=== PATIENT | female | born 1980 | race Caucasian/White ===

== ENCOUNTER 2016-09-09 06:26 | Emergency (ER) | payer OTHER ==
[2016-09-09] MEDS ORDERED: ONDANSETRON 4MG/2ML VIAL (J2405) As Ordered ONE (07:38)
[2016-09-09] MEDS ORDERED: MORPHINE 2 MG/ML 1ML SYRINGE As Ordered ONE (07:38)
[2016-09-09 08:00] LABS: ALBUMIN 3.8 GM/DL (3.2-5.2); ALBUMIN/GLOBULIN RATIO 1.19 (1.00-1.93); ALKALINE PHOSPHATASE 67 U/L (45-117); ALT/SGPT 24 U/L (12-78); AMYLASE 28 U/L (25-115); ANION GAP 9 MEQ/L (8-16); AST/SGOT 11 U/L (15-37); BILIRUBIN,DIRECT < 0.1 MG/DL (0.0-0.2); BILIRUBIN,TOTAL 0.4 MG/DL (0.2-1.0); BLOOD UREA NITROGEN 9 MG/DL (7-18); CALCIUM LEVEL 8.7 MG/DL (8.5-10.1); CARBON DIOXIDE LEVEL 27 MEQ/L (21-32); CHLORIDE LEVEL 107 MEQ/L (98-107); CREATININE FOR GFR 0.59 MG/DL (0.55-1.02); GLOMERULAR FILTRATION RATE > 60.0 (>60); GLUCOSE, FASTING 83 MG/DL (70-105); POTASSIUM SERUM 3.5 MEQ/L (3.5-5.1); SODIUM LEVEL 143 MEQ/L (136-145)
[2016-09-09] MEDS ORDERED: METOCLOPRAMIDE INJ 10MG/2ML VIAL (J2765) As Ordered ONE (08:16)
[2016-09-09 08:19] LABS: BASO % 0.4 % (0.0-1.0); EOS # 0.1 K/mm3 (0.0-0.50); EOS % 1.6 % (0.0-3.0); LARGE UNSTAINED CELL # 0.2 K/mm3 (0.0-0.4); LARGE UNSTAINED CELL % 2.1 % (0.0-4.0); LYMPH # 2.8 K/mm3 (1.5-4.5); LYMPH % 33.5 % (24.0-44.0); MEAN CORPUSCULAR HEMOGLOBIN 28.6 pg (27.0-33.0); MEAN CORPUSCULAR HGB CONC 33.6 g/dl (32.0-36.5); MONO # 0.5 K/mm3 (0.0-0.8); MONO % 6.1 % (0.0-5.0); NEUTROPHILS # 4.4 K/mm3 (1.8-7.7); NEUTROPHILS % 56.3 % (36.0-66.0); PLATELET COUNT, AUTOMATED 249 k/mm3 (150-450); RED CELL DISTRIBUTION WIDTH 12.8 % (11.5-14.5); WHITE BLOOD COUNT 7.8 K/mm3 (4.0-10.0)
[2016-09-09 08:21] LABS: CONTROL LINE HCG INT CTR LINE PRESENT
[2016-09-09] MEDS ORDERED: ISOVUE-370 76% 100ML VIAL (Q9967) As Ordered ONE (08:26)
--- NOTE | 2016-09-09 09:40 | REP ---
CT ABDOMEN PELVIS WITH IV BUT WITHOUT ORAL CONTRAST: HISTORY: Abdominal pain and epigastric pain. COMPARISON: CT study May [address] contrast dose: 100 mL of Isovue 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 The lung bases are essentially clear on axial CT images. No pleural effusion is seen. The liver and the spleen are normal in size and homogeneous in texture. The common bile duct is not dilated post cholecystectomy measuring 0.6 cm. 2 to 3 mm pancreatic duct is seen. No pancreatic cyst or mass is observed. No adrenal lesion is seen. The kidneys enhance symmetrically. Small and large intestinal bowel loops are normal in the upper abdomen. No retroperitoneal mass or adenopathy is seen. Normal caliber aorta is noted. The patient is status post appendectomy. Uterus is unremarkable. No ovarian mass, cyst or free fluid is seen. No abdominal wall defect is seen. IMPRESSION: Status post appendectomy and cholecystectomy. No acute intra-abdominal abnormality. No significant change from May 12, 2015 prior study. Signed by Bryan Escamilla MD 09/09/2016 10:07 A
--- NOTE | 2016-09-09 09:44 | EDDOCDS ---
Physician Documentation [facility] Name: Tammy Harmon Age: 36 yrs Sex: Female : 1980 Arrival Date: 09/09/2016 Time: 06:26 Bed I3 / M3 Private MD: Disposition: 09/09/16 09:28 Discharged to Home/Self Care. Impression: Nausea and vomiting, Diarrhea, unspecified. - Condition is Stable. - Discharge Instructions: Food Choices to Help Relieve Diarrhea, Adult, Nausea and Vomiting, Clear Liquid Diet, [id number]. - Prescriptions for ZOFRAN ODT 4 mg - dissolve 1 tablet by ORAL route 4 times per day As needed do not chew, do not swallow whole; 10 tablet. - Medication Reconciliation, Local Pharmacy Hours form. - Follow up: Center - [facility]; When: Call to arrange an appointment; Reason: Recheck today's complaints, Continuance of care. - Problem is new. - Symptoms have improved. - Notes: You were evaluated in the emergency department for nausea, vomiting, and diarrhea. Your work-up thus far has been negative. You were given pain and anti-nausea medication as well as some gentle fluid while in the ED. A prescription of Zofran has been provided at time of discharge to relieve your nausea. Follow the BRAT (bananas, rice, applesauce, toast) diet. Please schedule an appointment with your primary care provider at your soonest convenience to discuss today's complaints. Historical: - Allergies: No known drug Allergies; - Home Meds: 1. Prozac 20 mg Oral cap 1 cap once daily 2. Vitamin B-12 500 mcg Oral lozg - PMHx: Anxiety; - PSHx: Appendectomy; Cholecystectomy; Ovarian Cystectomy- Right; meniscus repair right knee; - Social history: Smoking status: Patient states former smoker of tobacco. No barriers to communication noted, The patient speaks fluent Albanian, Speaks appropriately for age. - Family history: Not pertinent. - : The pt / caregiver states he / she is not on anticoagulants. Home medication list is obtained from the patient. - Exposure Risk Screening:: None identified. 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 5 in. (165.10 cm); 07:37 BP 132 / 72 Supine; Pulse 50; pml 07:37 BP 116 / 76 Sitting; Pulse 53; pml 07:37 BP 130 / 78 Standing; Pulse 57; pml 09:28 BP 107 / 61; Pulse 51; Resp 18; Temp 97.2; Pulse Ox 99% ; Pain 5/10; jam1 06:33 Body Mass Index 26.63 (72.57 kg, 165.10 cm) cz MDM: 07:26 IV Saline Lock ordered. jo4 07:26 Ondansetron 4 mg IVP once ordered. jo4 07:26 morphine 2 mg IVP once ordered. jo4 07:26 Orthostatic VS ordered. jo4 07:26 Misc. Nursing Order ordered. jo4 07:27 CBC with Diff Ordered. EDMS 07:27 BMP Ordered. EDMS 07:27 Lipase Ordered. EDMS 07:27 Amylase Ordered. EDMS 07:27 Liver Profile Ordered. EDMS 07:30 Metoclopramide 10 mg IV at 40 mg/hr once over 15 mins ordered. jo4 07:41 Financial registration complete. mm15 07:42 [facility] Payment Agreement was scanned into [email or web address] and attached to record. mm15 08:11 Liver Profile Reviewed. jo4 08:12 BMP Reviewed. jo4 08:12 Lipase Reviewed. jo4 08:12 Amylase Reviewed. jo4 08:12 HCG,Serum Qualitative Ordered. EDMS 08:14 CT ABD & PELVIS: IV Contrast Only Ordered. EDMS 08:31 HCG,Serum Qualitative Reviewed. jo4 08:32 NS 0.9% 1000 ml IV at 100 mL/hr continuous ordered. jo4 08:42 CBC with Diff Reviewed. sd1 08:42 NS 0.9% 1000 ml IV at bolus once ordered. sd1 09:15 Fluid Challenge ordered. jo4 09:15 C Diff Toxins A&b Ordered. EDMS Administered Medications: 07:42 Drug: Ondansetron 4 mg [ondansetron HCl 2 mg/mL intravenous solution (2 mL)] Route: pml IVP; Site: right antecubital; 07:42 Drug: morphine 2 mg [morphine 2 mg/mL intravenous cartridge (1 mL)] Route: IVP; Site: pml right antecubital; 08:19 Drug: Metoclopramide 10 mg [metoclopramide 5 mg/mL injection solution] Route: IV; Rate: pml 40 mg/hr; Infused Over: 15 mins; Site: left antecubital; 08:40 Drug: NS 0.9% 1000 ml [sodium chloride 0.9 % injection solution] Route: IV; Rate: 100 pml mL/hr; Site: left antecubital; 08:50 Follow up: IV Status: Infusion discontinued pml 08:49 Drug: NS 0.9% 1000 ml [sodium chloride 0.9 % injection solution] Route: IV; Rate: pml bolus; Site: left antecubital; 09:41 Follow up: IV Status: Infusion discontinued; IV Intake: 500ml pml Signatures: Dispatcher [employer] Evelyn Alejandra MD MD sd1 Portillo Dan RN RN cz Michelle Dominguez RN RN pml Malcolm Lui mm15 Jacquelyn Bridges DO DO jo4 The chart was reviewed and I authenticate all verbal orders and agree with the evaluation and treatment provided.Attachments: 07:42 [facility] Payment Agreement mm15 MTDD
--- NOTE | 2016-09-09 09:44 | EDDOCDS ---
Nurse's Notes [facility] Name: Tammy Harmon Age: 36 yrs Sex: Female : 1980 Arrival Date: 09/09/2016 Time: 06:26 Bed I3 / M3 Private MD: Diagnosis: Nausea and vomiting;Diarrhea, unspecified Presentation: 09/09 06:30 Presenting complaint: Patient states: she started with nausea vomiting diarrhea 6 days cz ago unable to retain p.o. fluids for 4 days. Adult Sepsis Screening: The patient does not have new or worsening altered mentation. Patient's respiratory rate is less than 22. Systolic blood pressure is greater than 100. Patient has a qSOFA score of 0- Negative Sepsis Screen. Suicide/Homicide risk assessment- the patient denies having any suicidal and/or homicidal ideations and does not present with any other emotional, behavioral or mental health complaints. 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 Transition of care: patient was not received from another setting of care. 06:30 Acuity: [place] Level 3 cz 06:30 Method Of Arrival: Walkin/Carried/Asstd cz Triage Assessment: 06:33 General: Appears uncomfortable, Behavior is appropriate for age. Pain: Location: cz abdomen Pain currently is 7 out of 10 on a pain scale. HIV screening NA for this visit Offered previously. 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 Prozac 20 mg Oral cap 1 cap once daily 2. Vitamin B-12 500 mcg Oral lozg - PMHx: Anxiety; - PSHx: Appendectomy; Cholecystectomy; Ovarian Cystectomy- Right; meniscus repair right knee; - Social history: Smoking status: Patient states former smoker of tobacco. No barriers to communication noted, The patient speaks fluent Greek, Speaks appropriately for age. - Family history: Not pertinent. - : The pt / caregiver states he / she is not on anticoagulants. Home medication list is obtained from the patient. - Exposure Risk Screening:: None identified. Screenin:54 Screening information is obtained from the patient. Primary language is Greek. Fall jam1 risk: No risks identified. Assistance ADL's: requires no assistance with activities of daily living. Abuse/DV Screen: The patient / caregiver reports he/she is: not in a situation that causes fear, pain or injury. Nutritional screening: No deficits noted. Exposure Risk Screening: None identified. Advance Directives: Currently, there is no health care proxy. There is no active DNR order. There is no living will. There is no Power of Impregnating Helper. Advance directive information has not previously been placed in an [facility] medical record. Further advance directive information is declined. home support is adequate. Assessment: 07:02 General: Appears in no apparent distress, comfortable, Behavior is appropriate for age, pml cooperative. Pain: Location: abdomen Pain currently is 7 out of 10 on a pain scale. Neurological: Level of Consciousness is awake, alert, Oriented to person, place, time. Cardiovascular: Capillary refill < 3 seconds. Respiratory: Airway is patent Respiratory effort is even, unlabored. GI: Abdomen is non- distended Bowel sounds present X 4 quads. Abd is soft X 4 quads. Derm: Skin is pink, warm & dry. 08:19 General: resting on stretcher, reports abdominal cramping remains 6/10 - resps easy and pml unlabored, skin p/w/d. . 08:37 General: PT to CT - tolerated well. returned, rates pain unchanged. . pml 09:40 General: Appears in no apparent distress, comfortable, Behavior is appropriate for age, pml cooperative. Pain: Location: abdomen Pain currently is 5 out of 10 on a pain scale. Neurological: Level of Consciousness is awake, alert, Oriented to person, place, time. Cardiovascular: Capillary refill < 3 seconds. Respiratory: Airway is patent Respiratory effort is even, unlabored. GI: Abdomen is non- distended. Derm: Skin is pink, warm & dry. Vital Signs: 06:33 BP 124 / 76; Pulse 59; Resp 16; Temp 97.8(T); Pulse Ox 100% ; Weight 72.57 kg; Height 5 cz ft. 5 in. (165.10 cm); 07:37 BP 132 / 72 Supine; Pulse 50; pml 07:37 BP 116 / 76 Sitting; Pulse 53; pml 07:37 BP 130 / 78 Standing; Pulse 57; pml 09:28 BP 107 / 61; Pulse 51; Resp 18; Temp 97.2; Pulse Ox 99% ; Pain 5/10; jam1 06:33 Body Mass Index 26.63 (72.57 kg, 165.10 cm) cz Vitals: 06:33 Log In Time: September 09, 2016 at 06:27. cz ED Course: 06:27 Patient visited by Vibha Calvillo, [place]. hs2 06:27 Patient moved to Waiting hs2 06:30 Patient moved to Triage 1 cz 06:32 Triage Initiated cz 06:36 Patient moved to Pre RCE cz 06:48 Patient moved to I3 / M3 jam1 06:54 Pt greeted and oriented to ED. Patient advised of names of staff involved in care, jam1 location of call sen, wait times and NPO status. Patient has correct armband on for positive identification. Placed in gown. Bed in low position. Call light in reach. Side rails up X 1. Door closed. 07:00 [facility] jo4 07:00 Evelyn Acosta MD is Attending Physician. jo4 07:01 Patient visited by Jacquelyn Bridges DO. jo4 07:01 Patient visited by Jacquelyn Bridges DO. jo4 07:02 The patient / caregiver is instructed regarding the plan of care and ED course. pml 07:03 Patient visited by Michelle Dominguez RN. pml 07:42 [facility] Payment Agreement was scanned into [employer] and attached to record. mm15 07:45 Inserted peripheral IV: 20gauge IV in left antecubital area and blood collected. pml Patient tolerated the procedure well. 08:19 Patient visited by Michelle Dominguez RN. pml 08:29 Patient has correct armband on for positive identification. Bed in low position. Call jam1 light in reach. Side rails up X 1. Door closed. 08:[address] jam1 08:40 Patient visited by Michelle Dominguez,MIKI. pml 08:44 Patient moved to I3 / M3 je3 09:28 [facility] is Referral Physician. jo4 09:42 Discontinued lock intact, bleeding controlled, pressure dressing applied, No pml redness/swelling at site. No procedures done that require assistance. Administered Medications: 07:42 Drug: Ondansetron 4 mg [ondansetron HCl 2 mg/mL intravenous solution (2 mL)] Route: pml IVP; Site: right antecubital; 07:42 Drug: morphine 2 mg [morphine 2 mg/mL intravenous cartridge (1 mL)] Route: IVP; Site: pml right antecubital; 08:19 Drug: Metoclopramide 10 mg [metoclopramide 5 mg/mL injection solution] Route: IV; Rate: pml 40 mg/hr; Infused Over: 15 mins; Site: left antecubital; 08:40 Drug: NS 0.9% 1000 ml [sodium chloride 0.9 % injection solution] Route: IV; Rate: 100 pml mL/hr; Site: left antecubital; 08:50 Follow up: IV Status: Infusion discontinued pml 08:49 Drug: NS 0.9% 1000 ml [sodium chloride 0.9 % injection solution] Route: IV; Rate: pml bolus; Site: left antecubital; 09:41 Follow up: IV Status: Infusion discontinued; IV Intake: 500ml pml Intake: 09:41 IV: 500.00ml; Total: 500.00ml. pml Order Results: Lab Order: CBC with Diff; SPEC'M 09/09/16 07:34 Test: WHITE BLOOD COUNT; Value: 7.8; Range: 4.0-10.0; Units: K/mm3; Status: F Test: RED BLOOD COUNT; Value: 4.06; Range: 4.00-5.40; Units: M/mm3; Status: F Test: HEMOGLOBIN; Value: 11.6; Range: 12.0-16.0; Abnormal: Below low normal; Units: g/dl; Status: F Test: HEMATOCRIT; Value: 34.5; Range: 36.0-47.0; Abnormal: Below low normal; Units: %; Status: F Test: MEAN CORPUSCULAR VOLUME; Value: 85.0; Range: 80.0-96.0; Units: fl; Status: F Test: MEAN CORPUSCULAR HEMOGLOBIN; Value: 28.6; Range: 27.0-33.0; Units: pg; Status: F Test: MEAN CORPUSCULAR HGB CONC; Value: 33.6; Range: 32.0-36.5; Units: g/dl; Status: F Test: RED CELL DISTRIBUTION WIDTH; Value: 12.8; Range: 11.5-14.5; Units: %; Status: F Test: PLATELET COUNT, AUTOMATED; Value: 249; Range: 150-450; Units: k/mm3; Status: F Test: NEUTROPHILS %; Value: 56.3; Range: 36.0-66.0; Units: %; Status: F Test: LYMPH %; Value: 33.5; Range: 24.0-44.0; Units: %; Status: F Test: MONO %; Value: 6.1; Range: 0.0-5.0; Abnormal: Above high normal; Units: %; Status: F Test: EOS %; Value: 1.6; Range: 0.0-3.0; Units: %; Status: F Test: BASO %; Value: 0.4; Range: 0.0-1.0; Units: %; Status: F Test: LARGE UNSTAINED CELL %; Value: 2.1; Range: 0.0-4.0; Units: %; Status: F Test: NEUTROPHILS #; Value: 4.4; Range: 1.8-7.7; Units: K/mm3; Status: F Test: LYMPH #; Value: 2.8; Range: 1.5-4.5; Units: K/mm3; Status: F Test: MONO #; Value: 0.5; Range: 0.0-0.8; Units: K/mm3; Status: F Test: EOS #; Value: 0.1; Range: 0.0-0.50; Units: K/mm3; Status: F Test: BASO #; Value: 0.0; Range: 0.0-0.2; Units: K/mm3; Status: F Test: LARGE UNSTAINED CELL #; Value: 0.2; Range: 0.0-0.4; Units: K/mm3; Status: F Lab Order: [facility]; SPEC'M 09/09/16 07:34 Test: GLUCOSE, FASTING; Value: 83; Range: 70-105; Units: MG/DL; Status: F Test: BLOOD UREA NITROGEN; Value: 9; Range: 7-18; Units: MG/DL; Status: F Test: CREATININE FOR GFR; Value: 0.59; Range: 0.55-1.02; Units: MG/DL; Status: F Test: GLOMERULAR FILTRATION RATE; Value: > 60.0; Range: >60; Status: F Test: SODIUM LEVEL; Value: 143; Range: 136-145; Units: MEQ/L; Status: F Test: POTASSIUM SERUM; Value: 3.5; Range: 3.5-5.1; Units: MEQ/L; Status: F Test: CHLORIDE LEVEL; Value: 107; Range: 98-107; Units: MEQ/L; Status: F Test: CARBON DIOXIDE LEVEL; Value: 27; Range: 21-32; Units: MEQ/L; Status: F Test: ANION GAP; Value: 9; Range: 8-16; Units: MEQ/L; Status: F Test: CALCIUM LEVEL; Value: 8.7; Range: 8.5-10.1; Units: MG/DL; Status: F Test Note: ; Units are mL/min/1.73 m2 Chronic Kidney Disease Staging per NKF: Stage I & II GFR >=60 Normal to Mildly Decreased Stage III GFR 30-59 Moderately Decreased Stage IV GFR 15-29 Severely Decreased Stage V GFR <15 Very Little GFR Left ESRD GFR <15 on BOG CUTTER Lab Order: Lipase; [facility]' 09/09/16 07:34 Test: LIPASE; Value: 108; Range: 73-393; Units: U/L; Status: F Lab Order: Amylase; [facility] 09/09/16 07:34 Test: AMYLASE; Value: 28; Range: 25-115; Units: U/L; Status: F Lab Order: Liver Profile; [facility] 09/09/16 07:34 Test: AST/SGOT; Value: 11; Range: 15-37; Abnormal: Below low normal; Units: U/L; Status: F Test: ALT/SGPT; Value: 24; Range: 12-78; Units: U/L; Status: F Test: ALKALINE PHOSPHATASE; Value: 67; Range: 45-117; Units: U/L; Status: F Test: BILIRUBIN,TOTAL; Value: 0.4; Range: 0.2-1.0; Units: MG/DL; Status: F Test: BILIRUBIN,DIRECT; Value: < 0.1; Range: 0.0-0.2; Units: MG/DL; Status: F Test: TOTAL PROTEIN; Value: 7.0; Range: 6.4-8.2; Units: GM/DL; Status: F Test: ALBUMIN; Value: 3.8; Range: 3.2-5.2; Units: GM/DL; Status: F Test: ALBUMIN/GLOBULIN RATIO; Value: 1.19; Range: 1.00-1.93; Status: F Lab Order: HCG,Serum Qualitative; SPEC'M 09/09/16 07:34 Test: HCG, SERUM QUALITATIVE; Value: NEGATIVE; Range: NEGATIVE; Status: F Outcome: 09:28 Discharge ordered by Provider. jo4 09:42 Discharge Assessment: Patient awake, alert and oriented x 3. No cognitive and/or pml functional deficits noted. Patient verbalized understanding of disposition instructions. patient administered narcotics - yes. Pt provided with safe discharge. The following High Risk Discharge criteria are identified: None. Discharged to home ambulatory, with friend. Condition: good. Discharge instructions given to patient, Instructed on discharge instructions, follow up and referral plans. medication usage, Demonstrated understanding of instructions, medications, Pt was receptive of discharge instructions/ teaching. Prescriptions given X 1. CT Study completed. Property sent home with patient. 09:43 Patient left the ED. pml Signatures: Portillo Dan RN RN cz Murphy, Jane, PALLETIZER OPERATOR PALLETIZER OPERATOR rey1 Catarino Zamorano3 Michelle Dominguez RN RN pml Malcolm Lui mm15 Jacquelyn Bridges, DO jo4 Vibha Calvillo, Reg Reg hs2 Corrections: (The following items were deleted from the chart) 06:32 06:28 Presenting complaint: cz cz MTDD
--- NOTE | 2016-09-11 10:43 | EDDOCDS ---
Physician Documentation [facility] Name: Tammy Harmon Age: 36 yrs Sex: Female : 1980 Arrival Date: 09/09/2016 Time: 06:26 Bed I3 / M3 Private MD: Disposition: 09/09/16 09:28 Discharged to Home/Self Care. Impression: Nausea and vomiting, Diarrhea, unspecified. - Condition is Stable. - Discharge Instructions: Food Choices to Help Relieve Diarrhea, Adult, Nausea and Vomiting, Clear Liquid Diet, [id number]. - Prescriptions for ZOFRAN ODT 4 mg - dissolve 1 tablet by ORAL route 4 times per day As needed do not chew, do not swallow whole; 10 tablet. - Medication Reconciliation, Local Pharmacy Hours form. - Follow up: Center - [facility]; When: Call to arrange an appointment; Reason: Recheck today's complaints, Continuance of care. - Problem is new. - Symptoms have improved. - Notes: You were evaluated in the emergency department for nausea, vomiting, and diarrhea. Your work-up thus far has been negative. You were given pain and anti-nausea medication as well as some gentle fluid while in the ED. A prescription of Zofran has been provided at time of discharge to relieve your nausea. Follow the BRAT (bananas, rice, applesauce, toast) diet. Please schedule an appointment with your primary care provider at your soonest convenience to discuss today's complaints. Historical: - Allergies: No known drug Allergies; - Home Meds: 1. Prozac 20 mg Oral cap 1 cap once daily 2. Vitamin B-12 500 mcg Oral lozg - PMHx: Anxiety; - PSHx: Appendectomy; Cholecystectomy; Ovarian Cystectomy- Right; meniscus repair right knee; - Social history: Smoking status: Patient states former smoker of tobacco. No barriers to communication noted, The patient speaks fluent Yi, Speaks appropriately for age. - Family history: Not pertinent. - : The pt / caregiver states he / she is not on anticoagulants. Home medication list is obtained from the patient. - Exposure Risk Screening:: None identified. 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 5 in. (165.10 cm); 07:37 BP 132 / 72 Supine; Pulse 50; pml 07:37 BP 116 / 76 Sitting; Pulse 53; pml 07:37 BP 130 / 78 Standing; Pulse 57; pml 09:28 BP 107 / 61; Pulse 51; Resp 18; Temp 97.2; Pulse Ox 99% ; Pain 5/10; jam1 06:33 Body Mass Index 26.63 (72.57 kg, 165.10 cm) cz MDM: 07:26 IV Saline Lock ordered. jo4 07:26 Ondansetron 4 mg IVP once ordered. jo4 07:26 morphine 2 mg IVP once ordered. jo4 07:26 Orthostatic VS ordered. jo4 07:26 Misc. Nursing Order ordered. jo4 07:27 CBC with Diff Ordered. EDMS 07:27 BMP Ordered. EDMS 07:27 Lipase Ordered. EDMS 07:27 Amylase Ordered. EDMS 07:27 Liver Profile Ordered. EDMS 07:30 Metoclopramide 10 mg IV at 40 mg/hr once over 15 mins ordered. jo4 07:41 Financial registration complete. mm15 07:42 [facility] Payment Agreement was scanned into [employer] and attached to record. mm15 08:11 Liver Profile Reviewed. jo4 08:12 BMP Reviewed. jo4 08:12 Lipase Reviewed. jo4 08:12 Amylase Reviewed. jo4 08:12 HCG,Serum Qualitative Ordered. EDMS 08:14 CT ABD & PELVIS: IV Contrast Only Ordered. EDMS 08:31 HCG,Serum Qualitative Reviewed. jo4 08:32 NS 0.9% 1000 ml IV at 100 mL/hr continuous ordered. jo4 08:42 CBC with Diff Reviewed. sd1 08:42 NS 0.9% 1000 ml IV at bolus once ordered. sd1 09:15 Fluid Challenge ordered. jo4 09:15 C Diff Toxins A&b Ordered. EDMS 15:57 T-Sheet-- Draft Copy was scanned into [employer] and attached to record. klr Administered Medications: 07:42 Drug: Ondansetron 4 mg [ondansetron HCl 2 mg/mL intravenous solution (2 mL)] Route: pml IVP; Site: right antecubital; 07:42 Drug: morphine 2 mg [morphine 2 mg/mL intravenous cartridge (1 mL)] Route: IVP; Site: pml right antecubital; 08:19 Drug: Metoclopramide 10 mg [metoclopramide 5 mg/mL injection solution] Route: IV; Rate: pml 40 mg/hr; Infused Over: 15 mins; Site: left antecubital; 08:40 Drug: NS 0.9% 1000 ml [sodium chloride 0.9 % injection solution] Route: IV; Rate: 100 pml mL/hr; Site: left antecubital; 08:50 Follow up: IV Status: Infusion discontinued pml 08:49 Drug: NS 0.9% 1000 ml [sodium chloride 0.9 % injection solution] Route: IV; Rate: pml bolus; Site: left antecubital; 09:41 Follow up: IV Status: Infusion discontinued; IV Intake: 500ml pml Signatures: Dispatcher [employer] Evelyn Alejandra MD MD sd1 Portillo Dan RN RN cz Quay, Paulina, RN RN pml McGrath, Marlynn mm15 Jacquelyn Bridges DO DO jo4 Redder, Kathie klr The chart was reviewed and I authenticate all verbal orders and agree with the evaluation and treatment provided.Attachments: 07:42 [facility] Payment Agreement mm15 15:57 T-Sheet-- Draft Copy klr Chart Complete MTDD
--- NOTE | 2016-09-11 10:43 | EDDOCDS ---
Nurse's Notes [facility] Name: Tammy Harmon Age: 36 yrs Sex: Female : 1980 Arrival Date: 09/09/2016 Time: 06:26 Bed I3 / M3 Private MD: Diagnosis: Nausea and vomiting;Diarrhea, unspecified Presentation: 09/09 06:30 Presenting complaint: Patient states: she started with nausea vomiting diarrhea 6 days cz ago unable to retain p.o. fluids for 4 days. Adult Sepsis Screening: The patient does not have new or worsening altered mentation. Patient's respiratory rate is less than 22. Systolic blood pressure is greater than 100. Patient has a qSOFA score of 0- Negative Sepsis Screen. Suicide/Homicide risk assessment- the patient denies having any suicidal and/or homicidal ideations and does not present with any other emotional, behavioral or mental health complaints. Status: Patient is not a servicer travel trailers or dependent. Transition of care: patient was not received from another setting of care. 06:30 Acuity: [place] Level 3 cz 06:30 Method Of Arrival: Walkin/Carried/Asstd cz Triage Assessment: 06:33 General: Appears uncomfortable, Behavior is appropriate for age. Pain: Location: cz abdomen Pain currently is 7 out of 10 on a pain scale. HIV screening NA for this visit Offered previously. 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 Prozac 20 mg Oral cap 1 cap once daily 2. Vitamin B-12 500 mcg Oral lozg - PMHx: Anxiety; - PSHx: Appendectomy; Cholecystectomy; Ovarian Cystectomy- Right; meniscus repair right knee; - Social history: Smoking status: Patient states former smoker of tobacco. No barriers to communication noted, The patient speaks fluent Bengali, Speaks appropriately for age. - Family history: Not pertinent. - : The pt / caregiver states he / she is not on anticoagulants. Home medication list is obtained from the patient. - Exposure Risk Screening:: None identified. Screenin:54 Screening information is obtained from the patient. Primary language is Bengali. Fall jam1 risk: No risks identified. Assistance ADL's: requires no assistance with activities of daily living. Abuse/DV Screen: The patient / caregiver reports he/she is: not in a situation that causes fear, pain or injury. Nutritional screening: No deficits noted. Exposure Risk Screening: None identified. Advance Directives: Currently, there is no health care proxy. There is no active DNR order. There is no living will. There is no Power of Reports Analyst. Advance directive information has not previously been placed in an [facility] medical record. Further advance directive information is declined. home support is adequate. Assessment: 07:02 General: Appears in no apparent distress, comfortable, Behavior is appropriate for age, pml cooperative. Pain: Location: abdomen Pain currently is 7 out of 10 on a pain scale. Neurological: Level of Consciousness is awake, alert, Oriented to person, place, time. Cardiovascular: Capillary refill < 3 seconds. Respiratory: Airway is patent Respiratory effort is even, unlabored. GI: Abdomen is non- distended Bowel sounds present X 4 quads. Abd is soft X 4 quads. Derm: Skin is pink, warm & dry. 08:19 General: resting on stretcher, reports abdominal cramping remains 6/10 - resps easy and pml unlabored, skin p/w/d. . 08:37 General: PT to CT - tolerated well. returned, rates pain unchanged. . pml 09:40 General: Appears in no apparent distress, comfortable, Behavior is appropriate for age, pml cooperative. Pain: Location: abdomen Pain currently is 5 out of 10 on a pain scale. Neurological: Level of Consciousness is awake, alert, Oriented to person, place, time. Cardiovascular: Capillary refill < 3 seconds. Respiratory: Airway is patent Respiratory effort is even, unlabored. GI: Abdomen is non- distended. Derm: Skin is pink, warm & dry. Vital Signs: 06:33 BP 124 / 76; Pulse 59; Resp 16; Temp 97.8(T); Pulse Ox 100% ; Weight 72.57 kg; Height 5 cz ft. 5 in. (165.10 cm); 07:37 BP 132 / 72 Supine; Pulse 50; pml 07:37 BP 116 / 76 Sitting; Pulse 53; pml 07:37 BP 130 / 78 Standing; Pulse 57; pml 09:28 BP 107 / 61; Pulse 51; Resp 18; Temp 97.2; Pulse Ox 99% ; Pain 5/10; jam1 06:33 Body Mass Index 26.63 (72.57 kg, 165.10 cm) cz Vitals: 06:33 Log In Time: September 09, 2016 at 06:27. cz ED Course: 06:27 Patient visited by Vibha Calvillo, Reg. hs2 06:27 Patient moved to Waiting hs2 06:30 Patient moved to Triage 1 cz 06:32 Triage Initiated cz 06:36 Patient moved to Pre RCE cz 06:48 Patient moved to I3 / M3 jam1 06:54 Pt greeted and oriented to ED. Patient advised of names of staff involved in care, jam1 location of call sen, wait times and NPO status. Patient has correct armband on for positive identification. Placed in gown. Bed in low position. Call light in reach. Side rails up X 1. Door closed. 07:00 Jacquelyn Bridges DO is PHCP. jo4 07:00 Evelyn Acosta MD is Attending Physician. jo4 07:01 Patient visited by Jacquelyn Bridges DO. jo4 07:01 Patient visited by Jacquelyn Bridges DO. jo4 07:02 The patient / caregiver is instructed regarding the plan of care and ED course. pml 07:03 Patient visited by Michelle Dominguez RN. pml 07:42 [facility] Payment Agreement was scanned into [employer] and attached to record. mm15 07:45 Inserted peripheral IV: 20gauge IV in left antecubital area and blood collected. pml Patient tolerated the procedure well. 08:19 Patient visited by Michelle Dominguez,MIKI. pml 08:29 Patient has correct armband on for positive identification. Bed in low position. Call jam1 light in reach. Side rails up X 1. Door closed. 08:[address] jam1 08:40 Patient visited by Michelle Dominguez,MIKI. pml 08:44 Patient moved to I3 / M3 je3 09:28 [facility] is Referral Physician. jo4 09:42 Discontinued lock intact, bleeding controlled, pressure dressing applied, No pml redness/swelling at site. No procedures done that require assistance. 10:04 CT ABD & PELVIS: IV Contrast Only Returned. EDMS 15:57 T-Sheet-- Draft Copy was scanned into [employer] and attached to record. klr Administered Medications: 07:42 Drug: Ondansetron 4 mg [ondansetron HCl 2 mg/mL intravenous solution (2 mL)] Route: pml IVP; Site: right antecubital; 07:42 Drug: morphine 2 mg [morphine 2 mg/mL intravenous cartridge (1 mL)] Route: IVP; Site: pml right antecubital; 08:19 Drug: Metoclopramide 10 mg [metoclopramide 5 mg/mL injection solution] Route: IV; Rate: pml 40 mg/hr; Infused Over: 15 mins; Site: left antecubital; 08:40 Drug: NS 0.9% 1000 ml [sodium chloride 0.9 % injection solution] Route: IV; Rate: 100 pml mL/hr; Site: left antecubital; 08:50 Follow up: IV Status: Infusion discontinued pml 08:49 Drug: NS 0.9% 1000 ml [sodium chloride 0.9 % injection solution] Route: IV; Rate: pml bolus; Site: left antecubital; 09:41 Follow up: IV Status: Infusion discontinued; IV Intake: 500ml pml Intake: 09:41 IV: 500.00ml; Total: 500.00ml. pml Order Results: Lab Order: CBC with Diff; SPEC'M 09/09/16 07:34 Test: WHITE BLOOD COUNT; Value: 7.8; Range: 4.0-10.0; Units: K/mm3; Status: F Test: RED BLOOD COUNT; Value: 4.06; Range: 4.00-5.40; Units: M/mm3; Status: F Test: HEMOGLOBIN; Value: 11.6; Range: 12.0-16.0; Abnormal: Below low normal; Units: g/dl; Status: F Test: HEMATOCRIT; Value: 34.5; Range: 36.0-47.0; Abnormal: Below low normal; Units: %; Status: F Test: MEAN CORPUSCULAR VOLUME; Value: 85.0; Range: 80.0-96.0; Units: fl; Status: F Test: MEAN CORPUSCULAR HEMOGLOBIN; Value: 28.6; Range: 27.0-33.0; Units: pg; Status: F Test: MEAN CORPUSCULAR HGB CONC; Value: 33.6; Range: 32.0-36.5; Units: g/dl; Status: F Test: RED CELL DISTRIBUTION WIDTH; Value: 12.8; Range: 11.5-14.5; Units: %; Status: F Test: PLATELET COUNT, AUTOMATED; Value: 249; Range: 150-450; Units: k/mm3; Status: F Test: NEUTROPHILS %; Value: 56.3; Range: 36.0-66.0; Units: %; Status: F Test: LYMPH %; Value: 33.5; Range: 24.0-44.0; Units: %; Status: F Test: MONO %; Value: 6.1; Range: 0.0-5.0; Abnormal: Above high normal; Units: %; Status: F Test: EOS %; Value: 1.6; Range: 0.0-3.0; Units: %; Status: F Test: BASO %; Value: 0.4; Range: 0.0-1.0; Units: %; Status: F Test: LARGE UNSTAINED CELL %; Value: 2.1; Range: 0.0-4.0; Units: %; Status: F Test: NEUTROPHILS #; Value: 4.4; Range: 1.8-7.7; Units: K/mm3; Status: F Test: LYMPH #; Value: 2.8; Range: 1.5-4.5; Units: K/mm3; Status: F Test: MONO #; Value: 0.5; Range: 0.0-0.8; Units: K/mm3; Status: F Test: EOS #; Value: 0.1; Range: 0.0-0.50; Units: K/mm3; Status: F Test: BASO #; Value: 0.0; Range: 0.0-0.2; Units: K/mm3; Status: F Test: LARGE UNSTAINED CELL #; Value: 0.2; Range: 0.0-0.4; Units: K/mm3; Status: F Lab Order: [facility]; SPEC'M 09/09/16 07:34 Test: GLUCOSE, FASTING; Value: 83; Range: 70-105; Units: MG/DL; Status: F Test: BLOOD UREA NITROGEN; Value: 9; Range: 7-18; Units: MG/DL; Status: F Test: CREATININE FOR GFR; Value: 0.59; Range: 0.55-1.02; Units: MG/DL; Status: F Test: GLOMERULAR FILTRATION RATE; Value: > 60.0; Range: >60; Status: F Test: SODIUM LEVEL; Value: 143; Range: 136-145; Units: MEQ/L; Status: F Test: POTASSIUM SERUM; Value: 3.5; Range: 3.5-5.1; Units: MEQ/L; Status: F Test: CHLORIDE LEVEL; Value: 107; Range: 98-107; Units: MEQ/L; Status: F Test: CARBON DIOXIDE LEVEL; Value: 27; Range: 21-32; Units: MEQ/L; Status: F Test: ANION GAP; Value: 9; Range: 8-16; Units: MEQ/L; Status: F Test: CALCIUM LEVEL; Value: 8.7; Range: 8.5-10.1; Units: MG/DL; Status: F Test Note: ; Units are mL/min/1.73 m2 Chronic Kidney Disease Staging per NKF: Stage I & II GFR >=60 Normal to Mildly Decreased Stage III GFR 30-59 Moderately Decreased Stage IV GFR 15-29 Severely Decreased Stage V GFR <15 Very Little GFR Left ESRD GFR <15 on CASH POSTER Lab Order: Lipase; SPEC09/09/16 07:34 Test: LIPASE; Value: 108; Range: 73-393; Units: U/L; Status: F Lab Order: Amylase; [facility] 09/09/16 07:34 Test: AMYLASE; Value: 28; Range: 25-115; Units: U/L; Status: F Lab Order: Liver Profile; 09/09/16 07:34 Test: AST/SGOT; Value: 11; Range: 15-37; Abnormal: Below low normal; Units: U/L; Status: F Test: ALT/SGPT; Value: 24; Range: 12-78; Units: U/L; Status: F Test: ALKALINE PHOSPHATASE; Value: 67; Range: 45-117; Units: U/L; Status: F Test: BILIRUBIN,TOTAL; Value: 0.4; Range: 0.2-1.0; Units: MG/DL; Status: F Test: BILIRUBIN,DIRECT; Value: < 0.1; Range: 0.0-0.2; Units: MG/DL; Status: F Test: TOTAL PROTEIN; Value: 7.0; Range: 6.4-8.2; Units: GM/DL; Status: F Test: ALBUMIN; Value: 3.8; Range: 3.2-5.2; Units: GM/DL; Status: F Test: ALBUMIN/GLOBULIN RATIO; Value: 1.19; Range: 1.00-1.93; Status: F Lab Order: HCG,Serum Qualitative; SPEC'M 09/09/16 07:34 Test: HCG, SERUM QUALITATIVE; Value: NEGATIVE; Range: NEGATIVE; Status: F Radiology Order: CT ABD & PELVIS: IV Contrast Only Test: CT ABD & PELVIS: IV Contrast Only REASON FOR EXAMINATION: Abdomen Pain; CT ABDOMEN PELVIS WITH IV BUT WITHOUT ORAL CONTRAST:; ; HISTORY: Abdominal pain and epigastric pain.; ; COMPARISON: CT study May 12 2015.; ; CT contrast dose: 100 mL of Isovue 370 is administered intravenously.; ; CT FINDINGS: Preliminary digital monitoring analyst radiograph demonstrates clips in the; right upper quadrant and a normal bowel gas pattern. The lung bases are; essentially clear on axial CT images. No pleural effusion is seen. The liver; and the spleen are normal in size and homogeneous in texture. The common bile; duct is not dilated post cholecystectomy measuring 0.6 cm. 2 to 3 mm pancreatic; duct is seen. No pancreatic cyst or mass is observed. No adrenal lesion is; seen. The kidneys enhance symmetrically. Small and large intestinal bowel loops; are normal in the upper abdomen. No retroperitoneal mass or adenopathy is seen.; Normal caliber aorta is noted. The patient is status post appendectomy. Uterus; is unremarkable. No ovarian mass, cyst or free fluid is seen. No abdominal wall; defect is seen.; ; IMPRESSION:; ; Status post appendectomy and cholecystectomy. No acute intra-abdominal; abnormality. No significant change from May 12, 2015 prior study.; ; ; Signed by; Bryan Escamilla MD 09/09/2016 10:07 A; Outcome: 09:28 Discharge ordered by Provider. jo4 09:42 Discharge Assessment: Patient awake, alert and oriented x 3. No cognitive and/or pml functional deficits noted. Patient verbalized understanding of disposition instructions. patient administered narcotics - yes. Pt provided with safe discharge. The following High Risk Discharge criteria are identified: None. Discharged to home ambulatory, with friend. Condition: good. Discharge instructions given to patient, Instructed on discharge instructions, follow up and referral plans. medication usage, Demonstrated understanding of instructions, medications, Pt was receptive of discharge instructions/ teaching. Prescriptions given X 1. CT Study completed. Property sent home with patient. 09:43 Patient left the ED. teressa Signatures: Dispatcher [employer] EDMS Portillo Dan RN RN cz Murphy, Jane, AMARIS LOAD PLANNER jam1 Catarino Zamorano3 Michelle Dominguez RN RN pml McGrath, Marlynn mm15 Jacquelyn Bridges, DO DO jo4 Vibha Calvillo, Reg Reg hs2 Fanny Torres Corrections: (The following items were deleted from the chart) 06:32 06:28 Presenting complaint: cz cz Chart Complete MTDD
--- NOTE | 2016-09-11 10:43 | EDDOCDS ---
Physician Documentation [facility] Name: Tammy Harmon Age: 36 yrs Sex: Female : 1980 Arrival Date: 09/09/2016 Time: 06:26 Bed I3 / M3 Private MD: Disposition: 09/09/16 09:28 Discharged to Home/Self Care. Impression: Nausea and vomiting, Diarrhea, unspecified. - Condition is Stable. - Discharge Instructions: Food Choices to Help Relieve Diarrhea, Adult, Nausea and Vomiting, Clear Liquid Diet, [id number]. - Prescriptions for ZOFRAN ODT 4 mg - dissolve 1 tablet by ORAL route 4 times per day As needed do not chew, do not swallow whole; 10 tablet. - Medication Reconciliation, Local Pharmacy Hours form. - Follow up: Center - [facility]; When: Call to arrange an appointment; Reason: Recheck today's complaints, Continuance of care. - Problem is new. - Symptoms have improved. - Notes: You were evaluated in the emergency department for nausea, vomiting, and diarrhea. Your work-up thus far has been negative. You were given pain and anti-nausea medication as well as some gentle fluid while in the ED. A prescription of Zofran has been provided at time of discharge to relieve your nausea. Follow the BRAT (bananas, rice, applesauce, toast) diet. Please schedule an appointment with your primary care provider at your soonest convenience to discuss today's complaints. Historical: - Allergies: No known drug Allergies; - Home Meds: 1. Prozac 20 mg Oral cap 1 cap once daily 2. Vitamin B-12 500 mcg Oral lozg - PMHx: Anxiety; - PSHx: Appendectomy; Cholecystectomy; Ovarian Cystectomy- Right; meniscus repair right knee; - Social history: Smoking status: Patient states former smoker of tobacco. No barriers to communication noted, The patient speaks fluent Wolof, Speaks appropriately for age. - Family history: Not pertinent. - : The pt / caregiver states he / she is not on anticoagulants. Home medication list is obtained from the patient. - Exposure Risk Screening:: None identified. 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 5 in. (165.10 cm); 07:37 BP 132 / 72 Supine; Pulse 50; pml 07:37 BP 116 / 76 Sitting; Pulse 53; pml 07:37 BP 130 / 78 Standing; Pulse 57; pml 09:28 BP 107 / 61; Pulse 51; Resp 18; Temp 97.2; Pulse Ox 99% ; Pain 5/10; jam1 06:33 Body Mass Index 26.63 (72.57 kg, 165.10 cm) cz MDM: 07:26 IV Saline Lock ordered. jo4 07:26 Ondansetron 4 mg IVP once ordered. jo4 07:26 morphine 2 mg IVP once ordered. jo4 07:26 Orthostatic VS ordered. jo4 07:26 Misc. Nursing Order ordered. jo4 07:27 CBC with Diff Ordered. EDMS 07:27 BMP Ordered. EDMS 07:27 Lipase Ordered. EDMS 07:27 Amylase Ordered. EDMS 07:27 Liver Profile Ordered. EDMS 07:30 Metoclopramide 10 mg IV at 40 mg/hr once over 15 mins ordered. jo4 07:41 Financial registration complete. mm15 07:42 [facility] Payment Agreement was scanned into [employer] and attached to record. mm15 08:11 Liver Profile Reviewed. jo4 08:12 BMP Reviewed. jo4 08:12 Lipase Reviewed. jo4 08:12 Amylase Reviewed. jo4 08:12 HCG,Serum Qualitative Ordered. EDMS 08:14 CT ABD & PELVIS: IV Contrast Only Ordered. EDMS 08:31 HCG,Serum Qualitative Reviewed. jo4 08:32 NS 0.9% 1000 ml IV at 100 mL/hr continuous ordered. jo4 08:42 CBC with Diff Reviewed. sd1 08:42 NS 0.9% 1000 ml IV at bolus once ordered. sd1 09:15 Fluid Challenge ordered. jo4 09:15 C Diff Toxins A&b Ordered. EDMS 15:57 T-Sheet-- Draft Copy was scanned into [employer] and attached to record. klr Administered Medications: 07:42 Drug: Ondansetron 4 mg [ondansetron HCl 2 mg/mL intravenous solution (2 mL)] Route: pml IVP; Site: right antecubital; 07:42 Drug: morphine 2 mg [morphine 2 mg/mL intravenous cartridge (1 mL)] Route: IVP; Site: pml right antecubital; 08:19 Drug: Metoclopramide 10 mg [metoclopramide 5 mg/mL injection solution] Route: IV; Rate: pml 40 mg/hr; Infused Over: 15 mins; Site: left antecubital; 08:40 Drug: NS 0.9% 1000 ml [sodium chloride 0.9 % injection solution] Route: IV; Rate: 100 pml mL/hr; Site: left antecubital; 08:50 Follow up: IV Status: Infusion discontinued pml 08:49 Drug: NS 0.9% 1000 ml [sodium chloride 0.9 % injection solution] Route: IV; Rate: pml bolus; Site: left antecubital; 09:41 Follow up: IV Status: Infusion discontinued; IV Intake: 500ml pml Signatures: Dispatcher [employer] Evelyn Alejandra MD MD sd1 Portillo Dan RN RN cz Quay, Paulina, RN RN pml McGrath, Marlynn mm15 Jacquelyn Bridges DO DO jo4 Redder, Kathie klr The chart was reviewed and I authenticate all verbal orders and agree with the evaluation and treatment provided.Attachments: 07:42 [facility] Payment Agreement mm15 15:57 T-Sheet-- Draft Copy klr Chart Complete MTDD
== END 2016-09-09 09:43 | disposition home or self-care (01) ==
LOC: M ED 06:26
DX: R11.2 Nausea with vomiting, unspecified (principal); R19.7 Diarrhea, unspecified; F41.9 Anxiety disorder, unspecified; Z90.49 Acquired absence of other specified parts of digestive tract; Z90.89 Acquired absence of other organs; Z87.891 Personal history of nicotine dependence; Z79.899 Other long term (current) drug therapy
CPT/HCPCS: 36415; 74177; 80048; 80076; 82150; 83690; 84703; 85025; 99284; J2405; J2765; Q9967

== ENCOUNTER → 2016-09-20 | Outpatient (CLI) | payer OTHER ==
[2016-09-20 11:23] LABS: ANION GAP 9 MEQ/L (8-16); BLOOD UREA NITROGEN 9 MG/DL (7-18); CALCIUM LEVEL 9.9 MG/DL (8.5-10.1); CARBON DIOXIDE LEVEL 27 MEQ/L (21-32); CHLORIDE LEVEL 104 MEQ/L (98-107); CREATININE FOR GFR 0.68 MG/DL (0.55-1.02); FREE T4 1.07 NG/DL (0.76-1.46); GLOMERULAR FILTRATION RATE > 60.0 (>60); GLUCOSE, FASTING 99 MG/DL (70-105); POTASSIUM SERUM 4.3 MEQ/L (3.5-5.1); SODIUM LEVEL 140 MEQ/L (136-145)
== END ==
LOC: M LAB 10:23
PROVIDERS: ATTEND Nurse Practitioner Family
DX: F41.9 Anxiety disorder, unspecified (principal); R63.4 Abnormal weight loss

== ENCOUNTER 2017-04-12 08:44 | Emergency (ER) | payer MEDICAID, OTHER, SELFPAY ==
[2017-04-12] MEDS ORDERED: NS 1,000 ML IV ONE (09:30)
[2017-04-12] MEDS ORDERED: MORPHINE 4 MG/ML 1ML SYRINGE IV ONE (09:30)
[2017-04-12] MEDS ORDERED: ONDANSETRON 4MG/2ML VIAL (J2405) IV ONE (09:30)
[2017-04-12 09:44] LABS: BASO % 0.3 % (0.0-1.0); EOS # 0.1 K/mm3 (0.0-0.50); EOS % 0.7 % (0.0-3.0); LARGE UNSTAINED CELL # 0.1 K/mm3 (0.0-0.4); LARGE UNSTAINED CELL % 1.2 % (0.0-4.0); LYMPH # 1.3 K/mm3 (1.5-4.5); LYMPH % 11.4 % (24.0-44.0); MEAN CORPUSCULAR HEMOGLOBIN 28.8 pg (27.0-33.0); MEAN CORPUSCULAR VOLUME 87.2 fl (80.0-96.0); MONO # 0.5 K/mm3 (0.0-0.8); MONO % 4.7 % (0.0-5.0); NEUTROPHILS # 8.6 K/mm3 (1.8-7.7); NEUTROPHILS % 81.7 % (36.0-66.0); PLATELET COUNT, AUTOMATED 308 k/mm3 (150-450); RED CELL DISTRIBUTION WIDTH 12.7 % (11.5-14.5); WHITE BLOOD COUNT 10.5 K/mm3 (4.0-10.0)
[2017-04-12 10:04] LABS: CALCIUM OXALATE CRYSTALS SMALL
[2017-04-12] MEDS ORDERED: MORPHINE 2 MG/ML 1ML SYRINGE IV ONE (10:30)
--- NOTE | 2017-04-12 10:31 | REP ---
Clinical: Pelvic pain with history of ovarian cysts. . Technique: Transabdominal pelvic ultrasound followed by transvaginal examination for better evaluation of the endometrium and adnexa with color Doppler evaluation of the ovaries. Findings: Bladder is collapsed. Normal anteverted uterus measures 9.6 x 5.2 x 6.2 cm. The endometrial complex measures 11.2 mm and a 10 x 5 x 5 mm hyperechoic focus suggests small endometrial polyp. Bilateral ovaries are normal in appearance and vascularity without evidence for torsion. Right ovary measures 2.6 x 2.1 x 2.2 cm ; R I = 0.77 . Left ovary measures 3.4 x 3.2 x 3.7 cm with 1.6 cm involuting physiologic cyst ; R I = 0.60 . No pelvic fluid or adnexal mass lesion . Impression: 1. Suspected 10 mm endometrial polyp warrants gynecology consultation. 2. Essentially normal ovaries without evidence for torsion. 3. No pelvic fluid or adnexal mass lesion. Signed by Renato Raines MD 04/12/2017 10:22 A
[2017-04-12 10:47] LABS: CONTROL LINE UCG INT CTR LINE PRESENT
[2017-04-12 11:03] LABS: BLOOD UREA NITROGEN 7 MG/DL (7-18); CHLORIDE LEVEL 105 MEQ/L (98-107); CREATININE FOR GFR 0.66 MG/DL (0.55-1.02); GLOMERULAR FILTRATION RATE > 60.0 (>60); GLUCOSE, FASTING 100 MG/DL (70-105); POTASSIUM SERUM 3.6 MEQ/L (3.5-5.1); SODIUM LEVEL 142 MEQ/L (136-145)
[2017-04-12 11:04] LABS: ALBUMIN 3.6 GM/DL (3.2-5.2); ALBUMIN/GLOBULIN RATIO 0.84 (1.00-1.93); ALKALINE PHOSPHATASE 93 U/L (45-117); ALT/SGPT 23 U/L (12-78); ANION GAP 7 MEQ/L (8-16); AST/SGOT 15 U/L (15-37); BILIRUBIN,DIRECT 0.2 MG/DL (0.0-0.2); BILIRUBIN,TOTAL 0.8 MG/DL (0.2-1.0); CALCIUM LEVEL 9.1 MG/DL (8.5-10.1); CARBON DIOXIDE LEVEL 30 MEQ/L (21-32); TOTAL PROTEIN 7.9 GM/DL (6.4-8.2)
--- NOTE | 2017-04-12 11:19 | REP ---
Clinical: Flank pain. Comparison: 09/09/2016. Findings: Lung bases demonstrate mild bibasilar atelectasis. Visualized heart and pericardium are normal. Liver, spleen, pancreas, bilateral adrenal glands and kidneys are normal for noncontrast evaluation. Specifically, no perinephric stranding, hydroureteronephrosis, intrarenal or obstructing ureteral calculi are appreciated. The patient is status post cholecystectomy. The enteric system is without obstruction or acute inflammatory process and the patient appears to be status post appendectomy. Pelvis demonstrates normal bladder and age-appropriate uterus/adnexa stable pelvic calcifications consistent with phleboliths. No ascites. No free air. No obvious adenopathy. Abdominal aorta without aneurysm. Musculoskeletal structures are intact. Impression: No acute abdominopelvic pathology appreciated. Status post appendectomy and cholecystectomy. Signed by Renato Raines MD 04/12/2017 11:10 A
[2017-04-12 11:30] VITALS: BP 118/59
[2017-04-12] MEDS ORDERED: CIPR-249 PO (11:41)
[2017-04-12] MEDS ORDERED: NORCOTAB PO (11:41)
[2017-06-04] MEDS ORDERED: CELE10TA PO (07:46)
== END 2017-04-12 11:56 | disposition home or self-care (01) ==
LOC: M ED 08:44
DX: N39.0 Urinary tract infection, site not specified (principal); N84.0 Polyp of corpus uteri; Z87.42 Personal history of other diseases of the female genital tract; F17.210 Nicotine dependence, cigarettes, uncomplicated
CPT/HCPCS: 74176; 76830; 76856; 80048; 80076; 81001; 81025; 83690; 84703; 85025; 87086; 87210; 87491; 87591; 93976; 96374; 96375; 96376; 99283; J2405

== ENCOUNTER → 2017-05-01 | Outpatient (CLI) | payer MEDICAID, SELFPAY ==
[~2017-05-01] MED LIST: CELE10TA PO; CIPR-249 PO; NORCOTAB PO
--- NOTE | 2017-05-01 19:10 | REPUSA ---
Clinical history: Pain. Findings: Real-time transabdominal and transvaginal ultrasound images of the pelvis were obtained. An anteverted uterus is noted, measuring 9.9 x 5.4 x 6.3 cm. The uterus demonstrates normal echotexture and echogenicity. The endometrial stripe measures 22 mm and is thickened and echogenic. The right ov ham measures 3.6 x 2.4 x 2.3 cm. The left ovary measures 4.4 x 2.8 x 3.0 cm. There is a left ovarian cyst measuring 1.8 x 1.8 by 1.6 cm. No adnexal masses are seen. Color Doppler flow is seen within bot h ovaries. There is a small amount of free fluid within the cul-de-sac. Impression: 1. Thickened and echogenic endometrial stripe. This could be because of the patient's menstrual cycle . Clinical correlation is suggested. If there is further clinical concern, sonohysterogram could be p erformed. 2. Simple left ovarian cyst. 3. Small amount of free fluid within the cul-de-sac.
[2017-05-01 19:55] LABS: MEAN CORPUSCULAR HEMOGLOBIN 27.3 pg (27.0-33.0); MEAN CORPUSCULAR HGB CONC 32.1 g/dl (32.0-36.5); RED CELL DISTRIBUTION WIDTH 12.9 % (11.5-14.5); WHITE BLOOD COUNT 10.3 10^3/uL (4.0-10.0)
== END ==
LOC: M RAD 17:24
PROVIDERS: ATTEND Obstetrics & Gynecology
DX: N83.292 Other ovarian cyst, left side (principal); R10.2 Pelvic and perineal pain; N83.8 Other noninflammatory disorders of ovary, fallopian tube and broad ligament; N73.9 Female pelvic inflammatory disease, unspecified

== ENCOUNTER → 2017-05-23 | Outpatient (REF) | payer MEDICAID, OTHER | LOC: M LAB REF 12:52 | PROVIDERS: ATTEND Obstetrics & Gynecology | DX: Z11.3 Encounter for screening for infections with a predominantly sexual mode of transmission (principal) ==

== ENCOUNTER 2017-06-18 10:49 | Day surgery (SDC) | payer MEDICAID, OTHER ==
[~2017-06-18] VITALS: Ht 165.1 cm; Wt 75.3 kg
[2017-06-18] MEDS ORDERED: LR 1,000 ML IV ONE (11:00)
[2017-06-18 11:22] LABS: MEAN CORPUSCULAR HEMOGLOBIN 26.6 pg (27.0-33.0); MEAN CORPUSCULAR HGB CONC 32.8 g/dl (32.0-36.5); MEAN CORPUSCULAR VOLUME 81.1 fl (80.0-96.0); PLATELET COUNT, AUTOMATED 272 10^3/uL (150-450); RED CELL DISTRIBUTION WIDTH 14.2 % (11.5-14.5); WHITE BLOOD COUNT 6.2 10^3/uL (4.0-10.0)
[2017-06-18 11:46] LABS: CONTROL LINE HCG INT CTR LINE PRESENT
[2017-06-18] MEDS ORDERED: diazePAM 5 MG TAB PO PRN (12:00)
[2017-06-18] MEDS ORDERED: diazePAM 10 MG TAB PO PRN (12:00)
[2017-06-18] MEDS ORDERED: MIDAZOLAM INJ 2 MG/2 ML VIAL (J2250) As Ordered ONE (13:04)
[2017-06-18] MEDS ORDERED: PROPOFOL 200 MG/20 ML VIAL As Ordered ONE (13:04)
[2017-06-18] MEDS ORDERED: LIDOCAINE 2% INJ 100 MG/5 ML SDV (FOR ANES.) As Ordered ONE (13:04)
[2017-06-18] MEDS ORDERED: fentaNYL 100 MCG/2 ML INJECTION (J3010) As Ordered ONE ×2 (13:04→14:01)
[2017-06-18] MEDS ORDERED: dexameTHASONE 4 MG/ML 1ML VIAL (J1100) As Ordered ONE (13:04)
[2017-06-18] MEDS ORDERED: KETOROLAC 60 MG/2 ML VIAL (J1885) As Ordered ONE (13:13)
[2017-06-18] MEDS ORDERED: ONDANSETRON 4MG/2ML VIAL (J2405) As Ordered ONE (13:13)
[2017-06-18] MEDS: fentaNYL 100 MCG/2 ML INJECTION (J3010) IV PRN ×9 (14:05→14:52)
[2017-06-18] MEDS ORDERED: PERCOCET 5MG/325MG TAB PO PRN (14:15)
[2017-06-18] MEDS ORDERED: METOCLOPRAMIDE INJ 10MG/2ML VIAL (J2765) IV PRN (14:15)
[2017-06-18] MEDS ORDERED: LR 1,000 ML IV SCH (14:15)
[2017-06-18] MEDS ORDERED: MEPERIDINE INJ 25 MG/ML VIAL (J2175) IV PRN (14:15)
[2017-06-18] MEDS ORDERED: ONDANSETRON 4MG/2ML VIAL (J2405) IV PRN (14:15)
[2017-06-18] MEDS: PERCOCET 5MG/325MG TAB PO PRN ×2 (14:28→15:14)
--- NOTE | 2017-06-18 14:31 | RO ---
DATE OF PROCEDURE: 06/18/2017 PREOPERATIVE DIAGNOSIS: Endometrial polyp. POSTOPERATIVE DIAGNOSIS: Endometrial polyp. PROCEDURE PERFORMED: 1. Hysteroscopy. 2. Dilation and curettage (D and C) with MyoSure. SURGEON: Tasneem Medina MD CHIEF STATION ENGINEER: None ANESTHESIA: General via laryngeal mask airway. ESTIMATED BLOOD LOSS: 5 ml INTRAVENOUS FLUIDS: 1100 mL of lactated Ringer's solution. URINE OUTPUT: Not obtained. SPECIMENS: Endometrial curettings. Endometrial polyp. OPERATIVE FINDINGS: The patient with approximately 2 cm endometrial polyp. Also observed thickened endometrium. The uterus sounded to 8 cm. Bilateral ostia were visualized. DESCRIPTION OF OPERATION: After informed consent was obtained and written consent was reviewed, the patient was brought to the operating room where general anesthesia via laryngeal mask airway was obtained. She was then placed in the lithotomy position, and was prepped and draped in a normal sterile fashion. A time out in the operating room was then performed identifying the patient, procedure to be performed as well as drug allergies. A bivalve speculum was then placed revealing the cervix. The anterior lip of the cervix was grasped with a single tooth tennaculum. The uterus was sounded to 8 cm. Next the cervix was sequentially dilated using Jarrell's dilators. The hysteroscope was then advanced through the cervical os to the level of the fundus and endometrial cavity was surveyed with the above noted findings. Next, the MyoSure device was then advanced with a hysteroscope and the 2 cm anterior endometrial polyp was then morcellated. The hysteroscope was then removed. A sharp curette was then advanced into the cervical os and the uterus was then curetted in a 360 degrees fashion with large amounts of tissue obtained. Instruments were then removed from the patient's vagina. Specimens were all collected and sent to pathology for further evaluation. The single tooth tenaculum was removed. Tenaculum sites were noted to be hemostatic. The patient was then taken out of lithotomy position, was awakened from general anesthesia, and taken to recovery room in stable condition. Counts were correct.
[2017-06-18 15:05] VITALS: BP 131/80
[2017-06-18] MEDS ORDERED: KETOROLAC 30 MG/ML VIAL (J1885) IV SCH (18:00)
== END 2017-06-18 15:20 | disposition home or self-care (01) ==
LOC: M SDC 10:49
PROVIDERS: ATTEND Obstetrics & Gynecology
DX: N84.0 Polyp of corpus uteri (principal); R29.898 Other symptoms and signs involving the musculoskeletal system; F41.9 Anxiety disorder, unspecified; Z72.0 Tobacco use; Z79.899 Other long term (current) drug therapy
CPT/HCPCS: 36415; 58558; 84703; 85027; 86850; 86900; 86901; 88305; J1100; J1885; J2250; J2405; J3010

== ENCOUNTER 2017-11-25 16:21 | Emergency (ER) | payer SELFPAY | END 2017-11-25 17:46 | disposition home or self-care (01) | LOC: M ED 16:21 | DX: S61.201A Unspecified open wound of left index finger without damage to nail, initial encounter (principal); W26.8XXA Contact with other sharp object(s), not elsewhere classified, initial encounter; Y92.099 Unspecified place in other non-institutional residence as the place of occurrence of the external cause; Y93.9 Activity, unspecified; Y99.9 Unspecified external cause status; Z79.899 Other long term (current) drug therapy | CPT/HCPCS: 99282 ==

== ENCOUNTER → 2018-02-28 | Outpatient (REF) | payer MEDICAID ==
[2018-02-28 21:08] LABS: CHLAMYDIA DNA AMPLIFICATION NEGATIVE (NEGATIVE); GC DNA AMPLIFICATION NEGATIVE (NEGATIVE)
== END ==
LOC: M LAB REF 17:04
DX: Z11.3 Encounter for screening for infections with a predominantly sexual mode of transmission (principal)
CPT/HCPCS: 87591

== ENCOUNTER → 2018-02-28 | Outpatient (REF) | payer MEDICAID ==
[2018-02-28 21:05] LABS: CHLAMYDIA DNA AMPLIFICATION NEGATIVE (NEGATIVE); GC DNA AMPLIFICATION NEGATIVE (NEGATIVE)
== END ==
LOC: M LAB REF 18:18
DX: Z11.3 Encounter for screening for infections with a predominantly sexual mode of transmission (principal)
CPT/HCPCS: 87591

== ENCOUNTER 2018-07-05 06:47 | Emergency (ER) | payer OTHER ==
[2018-07-05 07:24] LABS: BASO % 0.3 % (0.0-1.0); EOS # 0.2 10^3/uL (0.0-0.50); EOS % 2.3 % (0.0-3.0); HEMOGLOBIN 11.9 g/dl (12.0-15.5); IMMATURE GRANULOCYTE % 0.3 % (0-3.0); LYMPH # 2.6 10^3/uL (1.5-4.5); LYMPH % 29.4 % (24.0-44.0); MEAN CORPUSCULAR HEMOGLOBIN 27.8 pg (27.0-33.0); MEAN CORPUSCULAR HGB CONC 33.1 g/dl (32.0-36.5); MEAN CORPUSCULAR VOLUME 84.1 fl (80.0-96.0); MONO # 0.9 10^3/uL (0.0-0.8); MONO % 9.6 % (0.0-5.0); NEUTROPHILS # 5.1 10^3/uL (1.8-7.7); NEUTROPHILS % 58.1 % (36.0-66.0); PLATELET COUNT, AUTOMATED 269 10^3/uL (150-450); RED BLOOD COUNT 4.28 10^6/uL (4.00-5.40); WHITE BLOOD COUNT 8.8 10^3/uL (4.0-10.0)
[2018-07-05 07:47] LABS: HCG, SERUM QUALITATIVE NEGATIVE (NEGATIVE)
[2018-07-05 07:48] LABS: CONTROL LINE HCG INT CTR LINE PRESENT
[2018-07-05 07:55] LABS: ALBUMIN/GLOBULIN RATIO 1.29 (1.00-1.93); ALKALINE PHOSPHATASE 80 U/L (45-117); ALT/SGPT 29 U/L (12-78); ANION GAP 8 MEQ/L (8-16); AST/SGOT 11 U/L (7-37); BILIRUBIN,TOTAL 0.3 MG/DL (0.2-1.0); BLOOD UREA NITROGEN 20 MG/DL (7-18); CALCIUM LEVEL 9.3 MG/DL (8.5-10.1); CARBON DIOXIDE LEVEL 27 MEQ/L (21-32); CHLORIDE LEVEL 104 MEQ/L (98-107); CREATININE FOR GFR 0.73 MG/DL (0.55-1.30); GLOMERULAR FILTRATION RATE > 60.0 (>60); GLUCOSE, FASTING 112 MG/DL (70-100); POTASSIUM SERUM 3.9 MEQ/L (3.5-5.1); SODIUM LEVEL 139 MEQ/L (136-145); TOTAL PROTEIN 7.1 GM/DL (6.4-8.2)
[2018-07-05 10:28] LABS: HEPATITIS B SURFACE ANTIBODY POSITIVE (POSITIVE)
[2018-07-05 10:39] LABS: HEPATITIS B SURFACE ANTIGEN NEGATIVE (NEGATIVE)
[2018-07-05 11:07] LABS: HEPATITIS C VIRUS ABY INDEX 0.1 INDEX (<0.8)
[2018-07-05 12:14] LABS: HIV SCREEN CENTAUR EXPOSED NEGATIVE (NEGATIVE)
== END 2018-07-05 07:45 | disposition home or self-care (01) ==
LOC: M ED 06:47
DX: Z77.21 Contact with and (suspected) exposure to potentially hazardous body fluids (principal)
CPT/HCPCS: 80053

== ENCOUNTER → 2018-10-10 | Outpatient (CLI) | payer OTHER ==
[~2018-10-10] MED LIST changes: +CLOPIDOGREL 75 MG TAB As Ordered ONE; +HYDR-3363; +HYDR-3713 PO; +IBUP-1114 PO; +ISOVUE-370 76% 100ML VIAL (Q9967) As Ordered ONE; +VARE05TA PO
--- NOTE | 2018-10-10 14:12 | REP ---
HYSTEROSALPINGOGRAM: Patient was referred for hysterosalpingogram. The cervix was catheterized by the referring clinician who injected contrast. I obtained fluoroscopic images. The uterine cavity is well opacified with no filling defect or contour abnormality. There is free passage of contrast to both fallopian tubes, with free intraperitoneal spillage bilaterally. There is bilateral fallopian tube patency. Fallopian tubes do not appear to be dilated. IMPRESSION: Bilateral fallopian tube patency. 0.9 minutes of fluoroscopy time utilized. Electronically Signed by Hank Jason MD 10/10/2018 05:12 P
== END ==
LOC: M RADPRO 12:14
PROVIDERS: ATTEND Obstetrics & Gynecology
DX: N92.6 Irregular menstruation, unspecified (principal)
CPT/HCPCS: 58340; 74740; Q9967

== ENCOUNTER → 2018-12-19 | Outpatient (CLI) | payer OTHER ==
[~2018-12-19] MED LIST changes: -CLOPIDOGREL 75 MG TAB As Ordered ONE; +HYDR-3715 PO; -ISOVUE-370 76% 100ML VIAL (Q9967) As Ordered ONE; -NORCOTAB PO
[2018-12-19 07:53] LABS: HCG, SERUM QUANTITATIVE < 1.0 MIU/ML
[2018-12-19 10:16] LABS: PROGESTERONE 3.75 NG/ML
== END ==
LOC: M LAB 06:45
PROVIDERS: ATTEND Obstetrics & Gynecology Reproductive Endocrinology
DX: Z32.00 Encounter for pregnancy test, result unknown (principal)